=== PATIENT | female | born 1980 | race Caucasian/White ===

== ENCOUNTER → 2016-03-09 | Outpatient (CLI) | payer BC ==
[~2016-03-09] MED LIST: PRENTAB26
[2016-03-09 12:23] LABS: URINE APPEARANCE CLEAR (CLEAR); URINE BILIRUBIN NEG (NEG); URINE COLOR YELLOW; URINE EPITHELIAL CELL AUTO >30 /lpf (0-5); URINE NITRITE NEG (NEG); URINE PH 7.5 (4.5-7.5); URINE SPECIFIC GRAVITY 1.007 (1.000-1.030); UROBILINOGEN NEG (NEG)
[2016-03-09 12:25] LABS: MANUAL MICROSCOPIC REQUIRED? NO; REVIEW REQ? NO
== END | disposition home or self-care (01) ==
LOC: C.LABSPEC 11:28
PROVIDERS: ATTEND Obstetrics & Gynecology
DX: O09.522 Supervision of elderly multigravida, second trimester (principal)

== ENCOUNTER 2016-03-24 17:26 | Outpatient (CLI) | payer BC ==
[~2016-03-24] VITALS: Ht 162.6 cm; Wt 88.0 kg
[2016-03-24 18:30] LABS: BASO % 0.1 %; BASO ABS # 0.02 K/uL (0-0.2); EOS % 0.9 %; IG% 0.4 %; LYMPH % 14.9 %; LYMPH ABS # 2.21 K/uL (1.2-3.4); MEAN CELL VOLUME 90.2 fL (80-100); MEAN CORPUSCULAR HEMOGLOBIN 31.8 pg (25-34); MEAN PLATELET VOLUME 11.1 fL (7.4-10.4); MONO % 5.9 %; NEUT % 77.8 %; PLATELET COUNT 211 K/uL (130-400); RED BLOOD COUNT 3.99 M/uL (4.2-5.4)
[2016-03-24 18:41] VITALS: Ht 162.6 cm; Wt 88.0 kg
[2016-03-24 18:42] LABS: COMPLETE YES; MEAN CORPUSCULAR HGB CONC 35.3 g/dl (32-36)
[2016-03-24 19:25] LABS: ALKALINE PHOSPHATASE 87 U/L (45-117); ALT/SGPT 14 U/L (12-78); AST/SGOT 13 U/L (15-37); CREATININE 0.58 mg/dl (0.60-1.20)
--- NOTE | 2016-03-28 10:43 | EDITING REQUIRED CODING QUERY ---
DIAGNOSIS NEEDED To promote full compliance with coding requirements relating to patient care, physician participation is requested in all cases of finishing machine operator uncertainty. Please assist us with the question(s) below: Coding Question: The patient received care in labor and delivery on 03/24/16 as noted within the record. Please document the diagnosis that is being addressed by the medication/treatment. Provider Response: DIAGNOSIS: Chronic hypertension in Thank you for your assistance, Joleen King - Automobile Technician
== END 2016-03-24 19:27 | disposition home or self-care (01) ==
LOC: C.OPB 17:26 → C.LD 17:26 → C.OPB 19:27
PROVIDERS: ATTEND Obstetrics & Gynecology
DX: O16.3 Unspecified maternal hypertension, third trimester (principal); Z3A.29 29 weeks gestation of pregnancy

== ENCOUNTER → 2016-03-26 | Outpatient (CLI) | payer BC ==
[2016-03-26 10:38] LABS: PATIENT HEIGHT 162.6 cm
[2016-03-26 10:44] LABS: HEMATOCRIT 35.7 % (37-47)
[2016-03-26 11:11] LABS: URINE TOTAL PROTEIN 6.9 mg/dl (0-11.9)
[2016-03-26 13:07] LABS: CREATININE 0.72 mg/dl (0.6-1.2); URINE TOTAL PROTEIN CALC 172.5 mg/24 hr (0-149.1)
== END | disposition home or self-care (01) ==
LOC: C.LAB 10:25
PROVIDERS: ATTEND Obstetrics & Gynecology
DX: O16.9 Unspecified maternal hypertension, unspecified trimester (principal); Z3A.00 Weeks of gestation of pregnancy not specified; O09.522 Supervision of elderly multigravida, second trimester

== ENCOUNTER → 2016-04-01 | Outpatient (CLI) | payer BC | END | disposition home or self-care (01) | LOC: C.LAB 06:55 | PROVIDERS: ATTEND Obstetrics & Gynecology | DX: O09.522 Supervision of elderly multigravida, second trimester (principal); Z3A.00 Weeks of gestation of pregnancy not specified ==

== ENCOUNTER → 2016-04-18 | Outpatient (CLI) | payer BC ==
[2016-04-18 16:31] LABS: HEMATOCRIT 35.7 % (37-47); MEAN CELL VOLUME 91.1 fL (80-100); MEAN CORPUSCULAR HEMOGLOBIN 31.6 pg (25-34); MEAN CORPUSCULAR HGB CONC 34.7 g/dl (32-36); PLATELET COUNT 204 K/uL (130-400); RED BLOOD COUNT 3.92 M/uL (4.2-5.4); WHITE BLOOD COUNT 14.88 K/uL (4.8-10.8)
[2016-04-18 17:01] LABS: ALKALINE PHOSPHATASE 102 U/L (45-117); ALT/SGPT 17 U/L (12-78); AST/SGOT 16 U/L (15-37)
== END | disposition home or self-care (01) ==
LOC: C.LAB1850 15:39
PROVIDERS: ATTEND Obstetrics & Gynecology
DX: O10.913 Unspecified pre-existing hypertension complicating pregnancy, third trimester (principal)

== ENCOUNTER 2016-05-05 18:50 | Outpatient (CLI) | payer BC ==
[~2016-05-05] VITALS: Ht 162.6 cm; Wt 94.5 kg
[2016-05-05 19:09] VITALS: Ht 162.6 cm; Wt 94.5 kg
[2016-05-05] MEDS ORDERED: ACETAMINOPHEN 325 MG TAB PO PRN (19:30)
[2016-05-05 19:53] LABS: BASO % 0.1 %; BASO ABS # 0.01 K/uL (0-0.2); COMPLETE YES; HEMATOCRIT 35.9 % (37-47); IG% 0.3 %; LYMPH % 16.9 %; LYMPH ABS # 2.47 K/uL (1.2-3.4); MEAN CELL VOLUME 92.1 fL (80-100); MEAN CORPUSCULAR HEMOGLOBIN 31.5 pg (25-34); MEAN CORPUSCULAR HGB CONC 34.3 g/dl (32-36); MEAN PLATELET VOLUME 11.6 fL (7.4-10.4); MONO % 4.9 %; NEUT % 76.8 %; PLATELET COUNT 195 K/uL (130-400); WHITE BLOOD COUNT 14.59 K/uL (4.8-10.8)
[2016-05-05 20:16] LABS: BUN/CREATININE RATIO 15.7 (10-20); CALCIUM 9.3 mg/dl (8.5-10.1); CREATININE 0.75 mg/dl (0.60-1.20)
[2016-05-05 20:18] LABS: ALB/GLOB RATIO 0.6 (0.9-2)
== END 2016-05-05 20:30 | disposition home or self-care (01) ==
LOC: C.OPB 18:50 → C.LD 18:50 → C.OPB 20:30
PROVIDERS: ATTEND Obstetrics & Gynecology
DX: O16.3 Unspecified maternal hypertension, third trimester (principal); Z3A.35 35 weeks gestation of pregnancy

== ENCOUNTER 2016-05-08 04:10 | Inpatient (IN) | payer BC ==
[~2016-05-08] VITALS: Ht 162.6 cm; Wt 94.5 kg
[2016-05-08] MEDS ORDERED: LACTATED RINGER'S 1000ML 1,000 ML IV PRN (05:10)
[2016-05-08] MEDS ORDERED: LACTATED RINGER'S 1000ML 1,000 ML IV SCH (05:10)
[2016-05-08] MEDS ORDERED: CEFAZOLIN IV 2,000 MG in DEXTROSE 5% 50ML 50 ML IV ONE (05:15)
[2016-05-08] MEDS ORDERED: CEFAZOLIN IV 1,000 MG in DEXTROSE 5% 50ML 50 ML IV PRN (05:15)
[2016-05-08 05:45] LABS: HEMATOCRIT 36.2 % (37-47); MEAN CORPUSCULAR HEMOGLOBIN 31.6 pg (25-34); MEAN CORPUSCULAR HGB CONC 35.1 g/dl (32-36); MEAN PLATELET VOLUME 11.6 fL (7.4-10.4); PLATELET COUNT 194 K/uL (130-400); RED BLOOD COUNT 4.02 M/uL (4.2-5.4); WHITE BLOOD COUNT 13.79 K/uL (4.8-10.8)
[2016-05-08 05:49] VITALS: Ht 162.6 cm; Wt 94.5 kg
[2016-05-08 06:19] LABS: CREATININE 0.74 mg/dl (0.60-1.20)
[2016-05-08] MEDS ORDERED: OXYTOCIN 30 UNITS/500ML NSS IV ONE (15:50)
[2016-05-08] MEDS ORDERED: SUPERCREAM 0.870 % 15GM JAR EXT PRN (16:15)
[2016-05-08] MEDS ORDERED: LANOLIN OINT EXT PRN ×2 (16:15)
[2016-05-08] MEDS ORDERED: OXYTOCIN 30 UNITS/500ML NSS IV PRN (16:15)
[2016-05-08] MEDS ORDERED: ACETAMINOPHEN/CODEINE 300/30MG TAB PO PRN ×2 (16:15)
[2016-05-08] MEDS ORDERED: IBUPROFEN 600 MG TAB PO PRN (16:15)
[2016-05-08] MEDS ORDERED: BENZOCAINE 20% AER SPR 82.5 GM CAN EXT PRN (16:15)
[2016-05-08] MEDS ORDERED: HYDROCORTISONE ACETATE 25 MG SUPP PR PRN (16:15)
[2016-05-08 19:30] VITALS: BP 131/88; PULSE 86; TEMP 36.7
[2016-05-08] MEDS: DOCUSATE SODIUM 100 MG CAP PO SCH (20:00)
[2016-05-08] MEDS: CEFAZOLIN IV 1,000 MG in DEXTROSE 5% 50ML 50 ML IV SCH (21:45)
--- NOTE | 2016-05-08 21:59 | DELIVERY SUMMARY ---
DATE OF OPERATION: 05/08/2016 PREDELIVERY DIAGNOSES: 1. A 36-year-old G4, P2-0-1-2 at 35 weeks, 4 days. 2. Spontaneous labor with rupture of membranes. 3. History of section x1 followed by successful vaginal after . 4. Late presentation to care. 5. Chronic hypertension. 6. Declines TDaP vaccine and Glucola testing. POSTDELIVERY DIAGNOSES: Same plus true knot in umbilical cord plus avulsion of true umbilical cord plus manual extraction of placenta. PROCEDURE: Vaginal after section and manual extraction of placenta. SURGEON: Dr. Mckeon. ESTIMATED BLOOD LOSS: 100 mL. Apgars 9 and 10. Weight pending. FINDINGS: Viable female with the above Apgars. True knot noted in the umbilical cord. First degree perineal laceration. Hemostatic not requiring repair. DESCRIPTION OF DELIVERY: The patient progressed to complete without epidural anesthesia and began to push and spontaneously vaginally delivered a viable female in the occiput anterior position. The head delivered with spontaneous delivery of the shoulders and body. No nuchal cord was noted. The baby was placed on mother's abdomen. The cord was doubly clamped and cut and the baby was handed off to the awaiting pediatrics team. A spontaneous cry was heard. A cord segment was obtained for cord gases and these were sent. Cord blood was obtained. During attempt to actively manage a third stage of labor with gentle traction on the umbilical cord, the umbilical cord avulse and therefore the placenta was removed manually. Placenta was inspected after delivery and was observed to be complete. The cervix, vagina and perineum were inspected and a first degree perineal laceration was noted. This was hemostatic, thus not requiring repair. The patient was agreeable to this plan. The uterus was firm and the uterus and vagina were swept of all clots and debris. Excellent hemostasis was observed. Sponge and instrument counts were correct at the conclusion of the delivery. Due to manual extraction of placenta, the patient will maintain on Ancef q. 8 hours for 24 hours following delivery. The patient and baby are recovering well in the room in stable and good condition. I attest to the content of the Intraoperative Record and any orders documented therein. Any exceptio ns are noted below.
[2016-05-09 00:30] VITALS: BP 142/91; PULSE 74; TEMP 36.3
[2016-05-09 03:30] VITALS: BP 141/87; PULSE 80; TEMP 36.7
[2016-05-09] MEDS: CEFAZOLIN IV 1,000 MG in DEXTROSE 5% 50ML 50 ML IV SCH ×2 (05:36→13:55)
[2016-05-09 06:05] LABS: HEMATOCRIT 34.5 % (37-47)
[2016-05-09 07:10] VITALS: BP 152/86; PULSE 75; TEMP 36.4; O2SAT 98
--- NOTE | 2016-05-09 07:11 | Progress Note ---
Subjective May 09, 2016. Subjective conversation w/ patient, physical exam Ambulation: ambulating normally Voiding: no voiding problems Passing Gas: No Diet Tolerance: Regular Diet Lochia: Small Feeding Type: Breast Feeding Review of Systems Constitutional: No fever Respiratory: No cough, No shortness of breath Cardiac: No chest pain, No palpitations Abdomen: No nausea, No pain, No vomiting Objective Vital Signs Date Time Temp Pulse Resp B/P Pulse Ox O2 Delivery O2 Flow Rate FiO2 05/09/16 03:30 36.7 80 16 141/87 Room Air 05/09/16 00:30 36.3 74 18 142/91 Room Air 05/09/16 00:30 Room Air 05/08/16 19:30 36.7 86 16 131/88 Room Air 05/08/16 19:30 Room Air Physical Exam General Appearance: WELL-APPEARING, NO APPARENT DISTRESS Respiratory/Chest: lungs clear, normal breath sounds Cardiovascular: regular rate, rhythm, no murmur Fundus: Firm, Non-Tender, Relation to Umbilicus (1 cm below umbilicus) Extremities: non-tender, no calf tenderness Laboratory Results Last 24 Hours Test 05/09/16 05:55 Hemoglobin 12.1 g/dL Hematocrit 34.5 % Assessment and Plan Post- Day#: 1 Continue Routine Care: s/p Day 1 - vitals reviewed and wnl - Hgb 12.1 today - Blood type: A+, GBS unknown (received cefazolin), Rubella immune - receiving 3 doses of cefazolin post for manual extraction of placenta - encourage ambulation, encourage breast feeding and encourage continued hydration - Blood pressure remains in low 140's/80's, continue to monitor - CONTINUE ROUTINE POST CARE Resident Physician Supervision Note: I was present with Dr. Pop during the history and exam. I discussed the case with the resident and agree with the findings and plan as documented in the note. Any exceptions or clarifications are listed here: PPD#1, continue ancef x24h after delivery for manual extraction of placenta. Routine care. Documented By: Ktaherine Mckeon
[2016-05-09] MEDS: DOCUSATE SODIUM 100 MG CAP PO SCH ×2 (08:00→20:00)
[2016-05-09 11:15] VITALS: BP 130/88; PULSE 86; TEMP 36.6
[2016-05-09 16:00] VITALS: BP 144/95; PULSE 83; TEMP 36.4
[2016-05-09] MEDS ORDERED: BISACODYL 5 MG TABEC PO SCH (20:00)
[2016-05-10 00:35] VITALS: BP 141/90; PULSE 71; TEMP 36.5
--- NOTE | 2016-05-10 07:15 | Progress Note ---
Subjective May 10, 2016. Subjective conversation w/ patient, physical exam Ambulation: ambulating normally Voiding: no voiding problems Passing Gas: Yes Diet Tolerance: Regular Diet Lochia: Small Feeding Type: Breast Feeding Review of Systems Constitutional: No chills, No fever Respiratory: No cough, No shortness of breath Cardiac: No chest pain, No palpitations Abdomen: No nausea, No pain, No vomiting Objective Vital Signs Date Time Temp Pulse Resp B/P Pulse Ox O2 Delivery O2 Flow Rate FiO2 05/10/16 00:35 36.5 71 16 141/90 Room Air 05/10/16 00:35 Room Air 05/09/16 16:00 36.4 83 18 144/95 Room Air 05/09/16 16:00 Room Air 05/09/16 11:15 36.6 86 18 130/88 Room Air 05/09/16 07:40 Room Air Physical Exam General Appearance: WELL-APPEARING, NO APPARENT DISTRESS Respiratory/Chest: lungs clear, no respiratory distress Cardiovascular: regular rate, rhythm, no murmur Fundus: Firm, Non-Tender, Relation to Umbilicus (2 cm below) Extremities: non-tender, no calf tenderness Assessment and Plan Post- Day#: 2 Continue Routine Care: s/p Day 2 - vital signs reviewed and wnl - Blood: A+, Rubella immune, GBS unknown (patient received AB) - Patient received cefazolin post for manual extraction of placenta - Patient doing well clinically - Encourage ambulation, continue and monitor lochia - Discharge instructions reviewed with patient - PLAN FOR DISCHARGE TODAY Resident Physician Supervision Note: I interviewed and examined the patient. Discussed with Dr. Pop and agree with findings and plan as documented in the note. Any exceptions or clarifications are listed here: [None] Documented By: Corie Evans
--- NOTE | 2016-05-10 07:17 | Discharge Instructions ---
Discharge Instructions Date of Service May 10, 2016. Admission Reason for Admission: Gestational Hypertension, With 35 Discharge Discharge Diagnosis / Problem: Spontaneous vaginal delivery Discharge Goals Goal(s): Routine recovery after delivery Medications Continue Dispensed Medications: supercream, dermaplast, tucks, lansinoh Activity Recommendations Activity Limitations: per Instructions/Follow-up section . Instructions / Follow-Up Instructions / Follow-Up ACTIVITY RECOMMENDATIONS: * Gradual return to full activity over the next 2-3 weeks. * No lifting - nothing heavier than baby over the next 2-3 weeks. * Do not engage in vigorous exercise, sexual activity or sports until cleared by your physician. * Do not drive or operate any motorized equipment until cleared by your physician. * You may shower/bathe daily. MEDICATIONS: For discomfort or pain, you may use Acetaminophen (Tylenol), Ibuprofen (Advil), or Naproxen (Aleve) following the package directions. For constipation you may use Colace following the package directions. BREAST CARE: If you are not breast feeding: * Wear a supportive bra 24 hours a day for one to two weeks. * Avoid stimulating your breasts and nipples as much as possible during the first few weeks after delivery. * When taking a shower, have the warm water hit your back, not breasts. * When your breasts feel full, apply ice packs. Usually three to four times a day helps ease the discomfort. * Take a mild pain medication (Tylenol / Motrin) when you are uncomfortable. If breast feeding: * Use breast milk to lubricate nipples. Lansinoh cream may be used for sore nipples. You do not need to remove cream prior to breast feeding. If using a different brand of cream, check the label for directions regarding removal of cream prior to nursing. * Wear a supportive bra. * If having problems with breasts or breast feeding, call a consultant electronics or your health care provider. EPISIOTOMY CARE: After delivery, if you have an episiotomy (stitches), the following steps will ease discomfort and aid healing. * For the first 24 hours after delivery, place ice packs next to your episiotomy to help reduce swelling. * After the first 24 hour-period, sitz baths, either portable or in the tub, are suggested. A shower with a shower arm sprayed over the episiotomy may be comforting. * [place] care should be done after each voiding and bowel movement. Squirt warm water from a plastic bottle over the perineum (region of the body between the anus and urinary opening) and pat dry. * Use Dermoplast to ease discomfort. Shake container. [place] directly over the episiotomy. Place a Tucks on a clean sanitary pad next to your episiotomy. SPECIAL CARE INSTRUCTIONS: When you are discharged from the hospital, it is important for you to follow the instructions listed below: * During the first week at home, you should be able to care for yourself and your baby. In addition, the usual light household activities are encouraged. * Limit your activities to the way you feel. Do not try to clean the house or move furniture. Be sensible. * If you actively engage in sports and have done so up until the time of your delivery, you may resume these activities as soon as you feel able. This may take up to one month or even longer. Use good judgment. * Continue to take your vitamins for at least six weeks after the of your baby. * Your diet need not be limited unless you were on a special diet before your delivery. Breast-feeding mothers need around 2500 calories per day and at least 64-80 ounces of fluid per day (8 to 10 glasses). * You should eat foods from the four major food groups. Crash diets or fad diets are to be avoided. Eating lean meats, fresh fruits and vegetables, low-fat dairy products, high fiber foods and a regular exercise program, will help you get back to your pre- weight without putting your health at risk. * Constipation is sometimes a problem after delivery. Take a mild laxative as needed. If breast feeding, Milk of Magnesia is acceptable to use. You may use a suppository or Fleets enema if no episiotomy. * A daily shower or tub bath is suggested. Be sure to thoroughly and gently dry the perineum. * A bloody vaginal discharge will usually continue until around four weeks post . A small amount of bleeding may continue for as long as six weeks. Vaginal discharge changes from the bright red bleeding after delivery to pink then brownish and finally yellowish-pink before becoming white and disappearing. * Bleeding may increase with activity. Your first period may come in 4-8 weeks. If you are breast feeding, your period may be delayed even longer. * [place] (sex) can begin whenever both you and your partner feel comfortable and do not have any form of genital infection. It is recommended that you wait at least six weeks for internal and external healing to occur. If you have questions, please talk to your health care practitioner. A condom should be used to prevent infection and . * Foreplay, gentle intercourse and lubrication is very important the first several times to prevent pain. A water-based lubricant such as K-Y jelly or Astroglide may be used. * If you have RH negative blood and your baby is RH positive, you will receive RHOGAM by injection prior to discharge. The nurse will give you a card to keep with you that has the date and place that you received RHOGAM after delivery. * During your care, you had a Rubella screen done to check for the presence of rubella antibodies in your blood. If your test was negative, you will receive a Rubella vaccine prior to discharge. This vaccine may cause a fever, soreness at the injection site and flu-like symptoms. If these symptoms persist, notify your health care practitioner. is not advised for one month after a Rubella vaccine. * Verbalizes understanding of car seat law as reviewed with patient nursing. * Car Seat hand-out given and reviewed with patient by nursing. * Shaken baby information reviewed with patient by nursing. Call you doctor if: * Heavy bleeding (saturating several pads an hour) or passing clots the size of your fist. * A fever >101 degrees F (38.3 degrees C) on two occasions four hours apart and /or chills. * Unusual pain in the pelvic or vaginal areas. * "Baby Blues" lasting longer than two weeks. If you have any questions or concerns, call your health care practitioner at . FOLLOW UP VISIT: * Please call the office at to schedule a 6 week examination. It is important you keep this appointment. It is important for you to make arrangements for either yearly or twice yearly check-ups thereafter. Current Hospital Diet Patient's current hospital diet: Regular OB Diet Discharge Diet Recommended Diet: Regular OB Diet Pending Studies Studies pending at discharge: no Medical Emergencies . Who to Call and When: Medical Emergencies: If at any time you feel your situation is an emergency, please call 911 immediately. . Non-Emergent Contact Non-Emergency issues call your: Primary Care Provider, Middle School Librarian . . "Provider Documentation" section prepared by Saman Pop. VTE Core Measure Inpt VTE Proph given/why not?: Treatment not indicated
[2016-05-10] MEDS: DOCUSATE SODIUM 100 MG CAP PO SCH (07:33)
[2016-05-10 08:00] VITALS: BP 132/92; PULSE 80; TEMP 36.8
[2016-05-10 11:00] VITALS: BP_DIAS 92; PULSE 80; TEMP 36.8
--- NOTE | 2016-05-11 08:26 | EDITING REQUIRED CODING QUERY ---
CODING QUERY To promote full compliance with coding requirements relating to patient care, provider participation is requested in all cases of combination welder uncertainty. Please assist us with the question(s) below: Coding Question(s): Dr. Mckeon, Gestational hypertension is documented in the OB progress and chronic hypertension is documented in the delivery summary. Please specify if the patient's hypertension: ( X ) predates the ( ) is induced ( ) other, please explain Physician's Response(s): We had diagnosed patient with chronic hypertension during the , and were following the chronic hypertension protocol throughout the in our office. Thank you! Thank you for your time, SCOTTY Casper, DAIRY FEED WORKER
== END 2016-05-10 12:15 | disposition home or self-care (01) | DRG 767 ==
LOC: C.OPB 04:10 → C.LD 04:11 → C.OPB 05:13 → C.OBG 19:28
PROVIDERS: ADMIT Obstetrics & Gynecology; ATTEND Obstetrics & Gynecology
PROC: 10D17ZZ Extraction of Products of Conception, Retained, Via Natural or Artificial Opening (ICD-10-PCS; principal; 2016-05-08)
PROC: 10E0XZZ Delivery of Products of Conception, External Approach (ICD-10-PCS; principal; 2016-05-08)
DX: O42.913 Preterm premature rupture of membranes, unspecified as to length of time between rupture and onset of labor, third trimester (principal); O60.14X0 Preterm labor third trimester with preterm delivery third trimester, not applicable or unspecified; O10.92 Unspecified pre-existing hypertension complicating childbirth; I10 Essential (primary) hypertension; O69.2XX0 Labor and delivery complicated by other cord entanglement, with compression, not applicable or unspecified; O70.0 First degree perineal laceration during delivery; O34.219 Maternal care for unspecified type scar from previous cesarean delivery; O69.89X0 Labor and delivery complicated by other cord complications, not applicable or unspecified; Z37.0 Single live birth; Z3A.35 35 weeks gestation of pregnancy

== ENCOUNTER → 2016-06-22 | Outpatient (CLI) | payer BC | END | disposition home or self-care (01) | LOC: C.PAPS 09:25 | PROVIDERS: ATTEND Obstetrics & Gynecology | DX: Z39.2 Encounter for routine postpartum follow-up (principal) ==

== ENCOUNTER 2017-10-14 15:22 | Emergency (ER) | payer BC ==
[~2017-10-14] VITALS: Ht 162.6 cm; Wt 77.9 kg
[~2017-10-14 15:22] MED LIST changes: -PRENTAB26; +PRENTAB26 PO
[2017-10-14 15:34] VITALS: TEMP 37.9; Ht 162.6 cm; Wt 77.9 kg
[2017-10-14] MEDS ORDERED: ONDANSETRON INJ 2 MG/ML 2 ML VIAL IV STA (16:06)
[2017-10-14] MEDS ORDERED: COUGH DROP (SUGAR FREE) LOZ 24 LOZ/1 BOX LOZ STA (16:06)
[2017-10-14] MEDS ORDERED: KETOROLAC TROMETHAMINE 30 MG/ML VIAL IV STA (16:06)
[2017-10-14] MEDS ORDERED: ACETAMINOPHEN 500 MG TAB PO STA (16:06)
[2017-10-14] MEDS ORDERED: ACET-1256 PO (16:10)
--- NOTE | 2017-10-14 16:11 | EMERGENCY ROOM VISIT NOTE ---
History Report prepared by Elisabeth: Fabi Anderson Under the Supervision of: Dr. Shawn oLpez M.D. 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 Positive headache, chills, diaphoresis, cough with clear discharge, sore throat (from coughing), dizziness, decreased appetite, ear pain. Negative recent falls. She states that her headache is alleviated when she lies down in certain positions. She describes her ear pain as a pressure. 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 Her LNMP was 2-3 years ago and she reports she is currently nursing her daughter. 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 Negative recent falls. Review of Systems See HPI for pertinent positives and negatives. A total of ten systems were reviewed and were otherwise negative. Past Medical & Surgical Medical Problems: (1) Chronic hypertension in obstetric context in third trimester (2) with 35 completed weeks gestation Family History No pertinent family history Social History Smoking Status: Never Smoker Smokeless Tobacco Use: Unknown Housing Status: lives with family Occupation Status: employed Current/Historical Medications Scheduled Acetaminophen (Tylenol), 1,000 MG PO q4-q6 Doxycycline Monohydrate (Monodox), 100 MG PO BID Multivit/Min/Iron/Fol Ac/Pren ( Vitamin), 1 TAB PO DAILY Allergies Coded Allergies: Amoxicillin (Verified Allergy, Mild, UNKNOWN, 10/14/17) Physical Exam Vital Signs Date Time Temp Pulse Resp B/P (MAP) Pulse Ox O2 Delivery O2 Flow Rate FiO2 10/14/17 16:51 94 10/14/17 15:34 37.9 107 18 119/79 94 Room Air Physical Exam GENERAL: Awake, alert, well-appearing, NAD. HENT: Normocephalic, atraumatic. No signs of meningismus. TMs are clear. Posterior pharynx is clear. EYES: Normal conjunctiva. Sclera non-icteric. PERRL. No anisocoria. NECK: Supple. No nuchal rigidity. FROM. RESPIRATORY: CTAB, no rhonchi, wheezing, crackles CARDIAC: RRR, no MRG ABDOMEN: Soft, NTND, BS+ MSK: No chest wall TTP, no LE edema NEURO: GCS 15, CN 2-12 intact, moves all 4s on command SKIN: No rash or jaundice noted. Medical Decision & Procedures ER Provider Diagnostic Interpretation: Radiology results as stated below per my review and radiologist interpretation: CHEST ONE VIEW PORTABLE CLINICAL HISTORY: Abdominal pain. COMPARISON STUDY: No previous studies for comparison. FINDINGS: Lung volumes are normal. There is no pneumothorax or pleural effusion. No lobar consolidation is present. There is suggestion of mild bilateral airspace opacities, greater on the left. Cardiac size is normal. Mediastinal contours are normal. There is no evidence for pulmonary edema. IMPRESSION: Suspected mild bilateral airspace opacities, greater within the left lung. The findings favor an mild infectious process. Radiographic follow-up to ensure resolution is recommended. Electronically signed by: Paco Montenegro M.D. 10/14/2017 4:22 PM Laboratory Results 10/14/17 15:45 Red Blood Count 4.78, Mean Corpuscular Volume 90.0, Mean Corpuscular Hemoglobin 31.0, Mean Corpuscular Hemoglobin Concent 34.4, Mean Platelet Volume 11.3, Neutrophils (%) (Auto) 79.0, Lymphocytes (%) (Auto) 11.8, Monocytes (%) (Auto) 8.9, Eosinophils (%) (Auto) 0.1, Basophils (%) (Auto) 0.1, Neutrophils # (Auto) 6.13, Lymphocytes # (Auto) 0.92, Monocytes # (Auto) 0.69, Eosinophils # (Auto) 0.01, Basophils # (Auto) 0.01 10/14/17 15:45 Test 10/14/17 15:21 10/14/17 15:45 Urine Color YELLOW Urine Appearance CLEAR (CLEAR) Urine pH 7.5 (4.5-7.5) Urine Specific Sterling 1.005 (1.000-1.030) Urine Protein NEG (NEG) Urine Glucose (UA) NEG (NEG) Urine Ketones NEG (NEG) Urine Occult Blood NEG (NEG) Urine Nitrite NEG (NEG) Urine Bilirubin NEG (NEG) Urine Urobilinogen NEG (NEG) Urine Leukocyte Esterase SMALL (NEG) Urine WBC (Auto) /hpf (0-5) Urine RBC (Auto) /hpf (0-4) Urine Hyaline Casts (Auto) /lpf (0-5) Urine Epithelial Cells (Auto) /lpf (0-5) Urine Bacteria (Auto) (NEG) Urine RBC 0-4 /hpf (0-4) Urine WBC 5-10 /hpf (0-5) Urine Epithelial Cells 5-10 /lpf (0-5) Urine Bacteria NEG (NEG) Urine Test NEG (NEG) White Blood Count 7.77 K/uL (4.8-10.8) Red Blood Count 4.78 M/uL (4.2-5.4) Hemoglobin 14.8 g/dL (12.0-16.0) Hematocrit 43.0 % (37-47) Mean Corpuscular Volume 90.0 fL (80-100) Mean Corpuscular Hemoglobin 31.0 pg (25-34) Mean Corpuscular Hemoglobin Concent 34.4 g/dl (32-36) Platelet Count 155 K/uL (130-400) Mean Platelet Volume 11.3 fL (7.4-10.4) Neutrophils (%) (Auto) 79.0 % Lymphocytes (%) (Auto) 11.8 % Monocytes (%) (Auto) 8.9 % Eosinophils (%) (Auto) 0.1 % Basophils (%) (Auto) 0.1 % Neutrophils # (Auto) 6.13 K/uL (1.4-6.5) Lymphocytes # (Auto) 0.92 K/uL (1.2-3.4) Monocytes # (Auto) 0.69 K/uL (0.11-0.59) Eosinophils # (Auto) 0.01 K/uL (0-0.5) Basophils # (Auto) 0.01 K/uL (0-0.2) RDW Standard Deviation 41.6 fL (36.4-46.3) RDW Coefficient of Variation 12.6 % (11.5-14.5) Immature Granulocyte % (Auto) 0.1 % Immature Granulocyte # (Auto) 0.01 K/uL (0.00-0.02) Nucleated RBC Absolute Count (auto) 0.00 K/uL (0-0) Nucleated Red Blood Cells % 0.0 % Anion Gap 7.0 mmol/L (3-11) Est Creatinine Clear Calc Drug Dose 100.7 ml/min Estimated GFR () 113.4 Estimated GFR (Non- 97.8 BUN/Creatinine Ratio 8.7 (10-20) Calcium Level 9.2 mg/dl (8.5-10.1) Laboratory results reviewed by me Medications Administered Medications (Trade) Dose Ordered Sig/Karlos Route Start Time Stop Time Status Last Admin Dose Admin Ondansetron HCl (Zofran Inj) 4 mg NOW STAT IV 10/14/17 16:06 10/14/17 16:08 DC 10/14/17 16:33 4 MG Ketorolac Tromethamine (Toradol Inj) 30 mg NOW STAT IV 10/14/17 16:06 10/14/17 16:08 DC 10/14/17 16:34 30 MG Acetaminophen (Tylenol Tab) 1,000 mg NOW STAT PO 10/14/17 16:06 10/14/17 16:08 DC 10/14/17 16:33 1,000 MG Menthol (Nice Salty) 1 salty NOW STAT SALTY 10/14/17 16:06 10/14/17 16:08 DC 10/14/17 16:34 1 SALTY Benzonatate (Tessalon Perles Cap) 100 mg NOW ONCE PO 10/14/17 16:15 10/14/17 16:16 DC 10/14/17 16:33 100 MG Doxycycline Hyclate (Vibramycin Cap) 100 mg NOW STAT PO 10/14/17 16:50 10/14/17 16:51 DC 10/14/17 17:15 100 MG Metoclopramide HCl (Reglan Inj) 10 mg NOW STAT IV. 10/14/17 17:06 10/14/17 17:07 DC 10/14/17 17:15 10 MG Diphenhydramine HCl (Benadryl Inj) 25 mg NOW STAT IV 10/14/17 17:06 10/14/17 17:07 DC 10/14/17 17:15 25 MG ECG Per My Interpretation Indication: other (illness) Rate (beats per minute): 96 Rhythm: normal sinus Findings: other (normal intervals, normal axis, no STS changes or TWI) ED Course 1600: The patient was evaluated in room C11. A complete history and physical exam was performed. 1654: I reevaluated the patient. Discussed results and discharge instructions: She verbalized understanding and agreement. The patient is ready for discharge. 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 Positive headache, chills, diaphoresis, cough with clear discharge, sore throat (from coughing), dizziness, decreased appetite, ear pain. Negative recent falls. Nursing notes reviewed. Ancillary studies and prior records reviewed. Differential diagnosis: Etiologies such as viral syndrome, otitis, pharyngitis, pneumonia, influenza, meningitis, urinary tract infection, sepsis, bacteremia, as well as others were entertained. Patient was seen and evaluated the bedside. Patient had been complaining of some mild headache as well as sore throat cough and postnasal drip. On exam the patient has no signs of meningismus and is fairly well-appearing. The patient was intermittently tachycardic. Likely related to some dehydration. The patient does have a chest film concerning for infectious etiology. Given the chronicity of her symptoms and associated productive cough we will treat with doxycycline. I do not believe the patient requires an LP. The patient has very reassuring blood work and is nontoxic in appearance. I did explain the findings to the patient. The patient still complaining of mild headache. Patient was given additional medications and the patient was subsequently reevaluated and improved. Patient was given strict follow-up, discharge, and return precautions. All questions were answered. Patient was deemed suitable for outpatient follow-up at this time. Patient agreed with the plan of care and was safely discharged home. Medication Reconcilliation Current Medication List: was personally reviewed by me Blood Pressure Screening Patient's blood pressure: Normal blood pressure Blood pressure disposition: Did not require urgent referral Impression Primary Impression: Pneumonia Additional Impression: Fever Scribe Attestation The scribe's documentation has been prepared under my direction and personally reviewed by me in its entirety. I confirm that the note above accurately reflects all work, treatment, procedures, and medical decision making performed by me. Departure Information Dispostion Home / Self-Care Prescriptions Doxycycline Monohydrate (Monodox) 100 Mg Cap 100 MG PO BID for 7 Days, #13 CAP Prov: Shawn Lopez M.D. 10/14/17 Referrals Augusta Weiner C.R.N.P (PCP) Forms HOME CARE DOCUMENTATION FORM, IMPORTANT VISIT INFORMATION, WORK / SCHOOL INSTRUCTIONS Patient Instructions ED Fever Control, ED Pneumonia Adult, Headache Pain, My [facility] Additional Instructions Please return to the emergency department if you have worsening or recurrent symptoms not amenable to at-home treatment. Please call for a follow-up appointment with her primary care physician. Please take your medications as prescribed. If you have other concerns and/or complaints please feel free to also call your primary care physician's office or return the ED for further evaluation, management, and treatment. You may take 600 mg Ibuprofen every 6 hours as needed for pain/fever with food unless told by your physician not to take NSAIDs. You may take tylenol 650 mg every 6 hours as needed for pain/fever unless told by your physician to not take it or have liver problems. You may take motrin and tylenol separately or at the same time. Take your medications as prescribed. If taking an antibiotic consider taking a probiotic and/or eating yogurt, but at the least, please take with food as it can cause upset stomach. You have been examined and treated today on an emergency basis only. This is not a substitute for, or an effort to provide, complete comprehensive medical care. It is impossible to recognize and treat all injuries or illnesses in a single emergency department visit. It is therefore important that you follow up closely with [facility], your PCP, and/or your specialist(s). Call as soon as possible for an appointment. Thank you for your time and consideration. I look forward to speaking with you again soon. Please don't hesitate to call us if you have any questions. Problem Qualifiers Primary Impression: Pneumonia Pneumonia type: due to unspecified organism Laterality: bilateral Lung location: unspecified part of lung Qualified Codes: J18.9 - Pneumonia, unspecified organism Additional Impression: Fever Fever type: unspecified Qualified Codes: R50.9 - Fever, unspecified
[2017-10-14] MEDS ORDERED: BENZONATATE 100MG CAP PO ONE (16:15)
--- NOTE | 2017-10-14 16:23 | DIAGNOSTIC IMAGING REPORT ---
CHEST ONE VIEW PORTABLE CLINICAL HISTORY: Abdominal pain. COMPARISON STUDY: No previous studies for comparison. FINDINGS: Lung volumes are normal. There is no pneumothorax or pleural effusion. No lobar consolidation is present. There is suggestion of mild bilateral airspace opacities, greater on the left. Cardiac size is normal. Mediastinal contours are normal. There is no evidence for pulmonary edema. IMPRESSION: Suspected mild bilateral airspace opacities, greater within the left lung. The findings favor an mild infectious process. Radiographic follow-up to ensure resolution is recommended. Electronically signed by: Paco Montenegro M.D. 10/14/2017 4:22 PM Dictated Date/Time: 10/14/2017 4:20 PM
[2017-10-14 16:24] LABS: BASO % 0.1 %; BASO ABS # 0.01 K/uL (0-0.2); EOS % 0.1 %; EOS ABS # 0.01 K/uL (0-0.5); HEMOGLOBIN 14.8 g/dL (12.0-16.0); IG# 0.01 K/uL (0.00-0.02); LYMPH % 11.8 %; LYMPH ABS # 0.92 K/uL (1.2-3.4); MEAN CORPUSCULAR HGB CONC 34.4 g/dl (32-36); MEAN PLATELET VOLUME 11.3 fL (7.4-10.4); MONO % 8.9 %; MONO ABS # 0.69 K/uL (0.11-0.59); NEUT ABS # 6.13 K/uL (1.4-6.5); PLATELET COUNT 155 K/uL (130-400); RED CELL DISTRIBUTION WIDTH CV 12.6 % (11.5-14.5); RED CELL DISTRIBUTION WIDTH SD 41.6 fL (36.4-46.3); WHITE BLOOD COUNT 7.77 K/uL (4.8-10.8)
[2017-10-14 16:40] LABS: CALCIUM 9.2 mg/dl (8.5-10.1); CREATININE 0.78 mg/dl (0.60-1.20)
[2017-10-14] MEDS ORDERED: DOXYCYCLINE HYCLATE 100 MG CAP PO STA (16:50)
[2017-10-14] MEDS ORDERED: METOCLOPRAMIDE HCL INJ 5 MG/ML 2 ML VIAL IV. STA (17:06)
[2017-10-14] MEDS ORDERED: DiphenhydrAMINE HCL 50 MG/ML VIAL IV STA (17:06)
[2017-10-14] MEDS ORDERED: DOXY100C76 PO (17:17)
[2017-10-14 17:41] VITALS: BP 120/81; PULSE 82; O2SAT 95
== END 2017-10-14 17:42 | disposition home or self-care (01) ==
LOC: C.EDB 15:24 → C.EDC 17:42
DX: J18.9 Pneumonia, unspecified organism (principal); Z88.0 Allergy status to penicillin